=== PATIENT | male | born 1950 | race Asian ===

== ENCOUNTER 2018-06-30 10:28 | Emergency (ER) | payer MEDICARE, OTHER ==
[~2018-06-30] VITALS: Ht 172.7 cm; Wt 71.2 kg
[2018-06-30 10:59] VITALS: BP 112/73
== END 2018-06-30 11:30 | disposition home or self-care (01) ==
LOC: ER 10:28
DX: J02.9 Acute pharyngitis, unspecified (principal); Z90.49 Acquired absence of other specified parts of digestive tract; Z87.891 Personal history of nicotine dependence
CPT/HCPCS: 71046; 93005